=== PATIENT | female | born 1985 | race Caucasian/White ===

== ENCOUNTER 2018-08-07 16:04 | Emergency (ER) | payer OTHER ==
[~2018-08-07] VITALS: Ht 157.5 cm; Wt 68.2 kg
[2018-08-07] MEDS ORDERED: KETOROLAC TROMETHAMINE 30 MG/ML VIAL IM ONE (19:30)
[2018-08-07 19:39] VITALS: BP 114/78
[2018-08-07] MEDS ORDERED: PENICILLIN V POTASSIUM 500 MG TABLET PO ONE (20:00)
== END 2018-08-07 20:23 | disposition home or self-care (01) ==
LOC: EMS 16:05
DX: K08.89 Other specified disorders of teeth and supporting structures (principal); H92.02 Otalgia, left ear; F12.90 Cannabis use, unspecified, uncomplicated; F17.210 Nicotine dependence, cigarettes, uncomplicated
CPT/HCPCS: 96372; 99283; J1885

== ENCOUNTER 2021-11-26 10:00 | Emergency (ER) | payer MEDICAID, OTHER ==
[~2021-11-26] VITALS: Ht 162.6 cm; Wt 50.6 kg
[2021-11-26 11:08] LABS: BASOPHILS % (AUTO) 0.4 % (0.0-2.0); EOSINOPHILS % (AUTO) 1.2 % (1.0-6.0); HEMATOCRIT 29.6 % (36-46); HEMOGLOBIN 10.1 g/dL (12.0-16.0); LYMPHOCYTES # (AUTO) 1.4 K/uL (1.0-4.8); LYMPHOCYTES % (AUTO) 14.1 % (22.0-44.0); MEAN CORPUSCULAR HEMOGLOBIN 32.7 pg (26.0-34.0); MEAN CORPUSCULAR HGB CONC 34.3 G/dL (31.0-37.0); MEAN CORPUSCULAR VOLUME 96 fL (80-100); MONOCYTES # (AUTO) 0.6 K/uL (0.1-1.0); MONOCYTES % (AUTO) 5.4 % (2.0-9.0); NEUTROPHILS % (AUTO) 78.9 % (40.0-70.0); PLATELET COUNT (AUTO) 273 K/uL (150-450); RED BLOOD CELL COUNT(AUTO) 3.09 MIL/uL (4.00-5.20); RED CELL DISTRIBUTION WIDTH 13.4 % (11.5-14.5)
[2021-11-26 11:18] LABS: ANION GAP 8 mmol/L (8-16); CALCIUM, TOTAL 8.6 mg/dL (8.8-10.5); CARBON DIOXIDE 26 mmol/L (22-29); CHLORIDE 102 mmol/L (98-107); CREATININE 0.46 mg/dL (0.60-1.30); GLOMERULAR FILTR. RATE CALC > 60 mL/min (>60); GLUCOSE,RANDOM 81 mg/dL (70-110); POTASSIUM 3.6 mmol/L (3.5-5.1); SODIUM SERUM 136 mmol/L (136-145); UREA NITROGEN, BLOOD 12 mg/dL (7-18)
[2021-11-26 11:23] LABS: ALANINE AMINOTRANSFERASE 20 U/L (12-78); ALBUMIN 2.8 g/dL (3.4-5.0); ALKALINE PHOSPHATASE 60 U/L (46-116); ASPARTATE AMINOTRANSFERASE 14 U/L (15-37); BILIRUBIN,TOTAL 0.3 mg/dL (0.1-1.0); TOTAL PROTEIN, SERUM 6.2 g/dL (6.4-8.2)
[2021-11-26 12:25] VITALS: BP 107/64
== END 2021-11-26 12:31 | disposition home or self-care (01) ==
LOC: EMS 10:02
DX: F32.9 Major depressive disorder, single episode, unspecified (principal); R45.851 Suicidal ideations; F41.9 Anxiety disorder, unspecified; F12.90 Cannabis use, unspecified, uncomplicated
CPT/HCPCS: 36415; 80053; 85025; 99284; G0480